=== PATIENT | male | born 1990 | race Asian ===

== ENCOUNTER 2017-01-16 22:19 | Emergency (ER) | payer BC ==
[~2017-01-16] VITALS: Ht 177.8 cm; Wt 92.5 kg
[2017-01-16 22:27] VITALS: Ht 177.8 cm; Wt 92.5 kg
[2017-01-17] MEDS ORDERED: FLUORESCEIN STRIP BOTH EYES ONE (02:00)
[2017-01-17] MEDS ORDERED: TETRACAINE 0.5% 4 ML OPH BOTH EYES ONE (02:00)
[2017-01-17] MEDS ORDERED: OFLO5DRO46 LEFT EYE (02:05)
--- NOTE | 2017-01-17 06:54 | ERD ---
DATE OF SERVICE: HISTORY OF PRESENT ILLNESS: The patient is a 26-year-old male complaining of left-sided eye pain. The patient was at work earlier today and he feels he scratched his eye. He does not feel he has a foreign body in his eye. He has had some mild swelling and injection to the eye. He wears glasses, but no contact lenses. He states that his vision is not affected. He has mild light sensitivity a nd tearing to the eye. PAST MEDICAL HISTORY: Denies medical problems. ALLERGIES: DENIES ALLERGIES TO MEDICATIONS. PAST SURGICAL HISTORY: Denies. SOCIAL HISTORY: Denies. REVIEW OF SYSTEMS: A 12-point review of systems was done. Refer to HPI for positives, all other sy stems negative. PHYSICAL EXAMINATION: VITAL SIGNS: Temperature is 97.7, pulse 71, blood pressure is 142/96, respiratory rate 20, O2 sat 9 8% on room air. Pain intensity is 0/10. GENERAL: The patient is well-appearing, well-nourished, no acute distress. HEART: Regular rate and rhythm. No murmurs, clicks, rubs or gallops. No S3 or S4. CHEST: Clear to auscultation bilaterally. There are no rales, wheezes or rhonchi. HEENT: The patient does have injection noted to the left sclera, but there is no purulence around. Pupils equal, round, and reactive to light. Extraocular movements intact. Oropharynx is clear. SKIN: There is no apparent rash or petechia. The skin is warm and dry. EMERGENCY ROOM COURSE: The patient had a visual acuity with glasses, left eye 20/25, right eye 20/2 5, bilateral 20/25. The patient had a fluoroscein stain with tetracaine. The patient's symptoms im proved with the use of tetracaine. I did not see any foreign bodies and there was a questionable co rneal abrasion. DIAGNOSES: 1. Corneal abrasion. 2. Sclerae injection. MEDICAL DECISION MAKING: I have low suspicion for retained foreign body, low suspicion for globe ru pture, low suspicion for abscess or ulceration of the cornea, low suspicion for acute angle glaucoma or visual deficits. DISCHARGE: The patient is discharged stable. The patient is given a prescription for Ocuflox and t old to follow up with primary care within 1 to 2 days for reevaluation. The patient was told if sym ptoms progress or worsen to return to the ER. All other questions answered at time of discharge. D ischarge summary given at the time of departure. The patient understood and complied with plan. Dictated By: NANDO BRADLEY for PRABHJOT ARZATE/ERIC Conf#: [id number] DID#: [id number]
== END 2017-01-17 02:27 | disposition home or self-care (01) ==
LOC: FTE 22:19
DX: S05.02XA Injury of conjunctiva and corneal abrasion without foreign body, left eye, initial encounter (principal); H15.89 Other disorders of sclera; X58.XXXA Exposure to other specified factors, initial encounter; Y92.9 Unspecified place or not applicable
CPT/HCPCS: 99283

== ENCOUNTER 2017-11-18 06:41 | Emergency (ER) | END 2017-11-18 09:41 | disposition home or self-care (01) ==